=== PATIENT | female | born 1975 | race African-American/Black ===

== ENCOUNTER 2021-12-07 18:30 | Emergency (ER) | payer OTHER ==
[~2021-12-07] VITALS: Ht 160 cm; Wt 52.2 kg
== END 2021-12-07 21:37 | disposition home or self-care (01) ==
LOC: ER 18:30
DX: S01.81XA Laceration without foreign body of other part of head, initial encounter (principal); W18.30XA Fall on same level, unspecified, initial encounter; Y93.01 Activity, walking, marching and hiking; Y92.821 Forest as the place of occurrence of the external cause; Y99.8 Other external cause status